=== PATIENT | male | born 1945 | race Caucasian/White ===

== ENCOUNTER 2017-04-19 11:34 | Outpatient (CLI) | payer MEDICARE, BC | END 2017-04-19 11:35 | disposition home or self-care (01) | LOC: LABBT 11:34 | PROVIDERS: ATTEND Internal Medicine Cardiovascular Disease | DX: Z01.818 Encounter for other preprocedural examination (principal); R07.9 Chest pain, unspecified ==

== ENCOUNTER 2017-04-20 06:03 | Day surgery (SDC) | payer MEDICARE, BC ==
[~2017-04-20 06:03] MED LIST: DC ENOXAPARIN NIGHT BEFORE CATH FS SCH; Hydrocortisone Sod Succ/PF 100 mg/2 ml Vial IVP SCH; Sodium Chloride 0.9% 1,000 ML IV SCH
[2017-04-20] MEDS ORDERED: Hydrocortisone Sod Succ/PF 100 mg/2 ml Vial ONE (06:46)
[2017-04-20 06:50] LABS: #Eosinphils 0.1 thou/uL (0.0-0.7); #Lymphocytes 2.2 thou/uL (1.20-3.40); #Monocytes 0.6 thou/uL (0.11-0.59); #Neutrophils 2.7 thou/uL (1.40-6.50); %Basophils 0.2 % (0.0-1.0); %Eosinophils 1.8 % (0.0-10.0); %Lymphocytes 39.3 % (21.0-51.0); %Monocytes 10.7 % (0.0-10.0); Hemoglobin 14.5 g/dL (14.0-18.0); Mean Corpuscular HGB CONC 33.7 g/dL (32.0-36.0); Mean Corpuscular Hemoglobin 32.3 pg (27.0-31.0); Mean Corpuscular Volume 95.9 fl (80.0-94.0); Mean Platelet Volume 7.8 fL (7.4-10.4); Platelet Count 169 thou/uL (130-400); RBC Distribution Width 11.9 % (11.5-14.5); Red Blood Cell (RBC) Count 4.49 mill/uL (4.70-6.10); White Blood Cell (WBC) Count 5.6 thou/uL (4.8-10.8)
[2017-04-20] MEDS ORDERED: Diazepam 5 MG TAB ONE (06:50)
[2017-04-20] MEDS ORDERED: Diazepam 5 MG TAB PO SCH (07:00)
[2017-04-20] MEDS ORDERED: HOLD HYPOGLYCEMIC MEDS AM OF CATH FS SCH (07:00)
[2017-04-20 07:02] LABS: INR-International Normal Ratio 1.1; PTT 27.1 SEC (22.9-36.1); Prothrombin Time 13.9 SEC (12.0-14.7)
[2017-04-20 07:06] LABS: ALT (SGPT) 10 U/L (8-55); AST (SGOT) 13 U/L (5-34); Alkaline Phosphatase 67 U/L (40-150); Anion Gap 12 mmol/L (10-20); BUN (Urea Nitrogen) 16 mg/dL (8.4-25.7); Calc. Creatinine Clearance 0 mL/min (70-130); Calcium 9.7 mg/dL (7.8-10.44); Carbon Dioxide 25 mmol/L (23-31); Cardiac Risk 4.6 (Less than 4.5); Chloride 106 mmol/L (98-107); Cholesterol 176 mg/dl (< 200 Desired); Estimated GFR-MDRD 87; Globulin 3.4 g/dL (2.4-3.5); Glucose 107 mg/dL (83-110); HDL Cholesterol 38 mg/dL (>60 Neg Risk); LDL Cholesterol, Calculated 118 mg/dL; Potassium 3.9 mmol/L (3.5-5.1); Protein, Total 7.4 g/dL (5.8-8.1); Sodium 139 mmol/L (136-145); Triglycerides 98 mg/dL (Less than 150)
[2017-04-20] MEDS ORDERED: Fentanyl 100 MCG/2 ML VIAL ONE (07:28)
[2017-04-20] MEDS ORDERED: Midazolam HCl 2 mg/2 ml Vial ONE (07:28)
[2017-04-20] MEDS ORDERED: Iopamidol 370 76% 100 ML VIAL ONE (11:28)
== END 2017-04-20 13:25 | disposition home or self-care (01) ==
LOC: CCL 06:03
PROVIDERS: ATTEND Internal Medicine Cardiovascular Disease
DX: R94.39 Abnormal result of other cardiovascular function study (principal); I10 Essential (primary) hypertension; I42.9 Cardiomyopathy, unspecified; K21.9 Gastro-esophageal reflux disease without esophagitis; E78.00 Pure hypercholesterolemia, unspecified; Z79.899 Other long term (current) drug therapy; Z96.653 Presence of artificial knee joint, bilateral; Z98.890 Other specified postprocedural states
CPT/HCPCS: 76942; 80053; 80061; 85025; 85610; 85730; 93458; C1769; 36415; 99152; 99153; J1644; J1720; J2250; J3010

== ENCOUNTER 2017-06-29 05:52 | Day surgery (SDC) | payer MEDICARE, BC ==
[2017-06-28 14:12] VITALS: BMI 29.0
[~2017-06-29 05:52] MED LIST changes: +Cyclopentolate 1% Opth Drop 2 ML BOT FS SCH; -DC ENOXAPARIN NIGHT BEFORE CATH FS SCH; +Fluorouracil 100 MG, Enoxaparin Sodium 25 MG, EPINEPHrine 0.3 MG in Ophthalmic Irrigati... IVPB SCH; -Hydrocortisone Sod Succ/PF 100 mg/2 ml Vial IVP SCH; +Phenylephrine 2.5% Ophth Soln 5 ML BOT FS SCH; -Sodium Chloride 0.9% 1,000 ML IV SCH
[2017-06-29] MEDS ORDERED: Fentanyl 250 MCG/5 ML VIAL ONE (06:10)
[2017-06-29] MEDS ORDERED: Diprivan 20 ML ONE (06:10)
[2017-06-29] MEDS ORDERED: Midazolam HCl 2 mg/2 ml Vial ONE (06:10)
[2017-06-29] MEDS ORDERED: Cyclopentolate 1% Opth Drop 2 ML BOT ONE (06:15)
[2017-06-29] MEDS ORDERED: Phenylephrine 2.5% Ophth Soln 5 ML BOT ONE (06:15)
--- NOTE | 2017-06-29 08:39 | OP ---
DATE OF PROCEDURE: 06/29/2017 PREOPERATIVE DIAGNOSIS: Macular hole, right eye. POSTOPERATIVE DIAGNOSIS: Macular hole, right eye. PROCEDURE: Pars plana vitrectomy, internal limiting membrane peel, right eye. SURGEON: Dr. Jaime Shields. ANESTHESIA: Local with monitored anesthesia care. COMPLICATIONS: None. PROCEDURE IN DETAIL: The patient was identified in the preoperative holding area. Appropriate infor med consent, the planned surgical procedure on the right eye had been obtained. The patient was cortés sported to the operative suite. Appropriate cardiopulmonary monitoring established. Local anesthesi a obtained here for retrobulbar and modified Van Lint lid block. Using 50/50 mixture of 4% lidocaine and 0.75% bupivacaine, patient prepped and draped in the usual sterile manner for ophthalmic surgery on the right eye. Lid speculum was placed in the right eye. The 25-gauge trocars were placed in co njunctiva and sclera supratemporally, inferotemporally, and supranasally. Infusion line was placed i nferotemporally. Light pipe and vitreous cutter were inserted into the eye. Core vitrectomy was per formed. Posterior hyaloid face was elevated and lifted across the macula using vacuum suction. Indo cyanine green dye was infused on the posterior pole x1, identifying the internal limiting membrane. This was elevated in the superior and anterior arcades using membrane scraper and peeled across the m acula in large sheets with end-gripping forceps. Complete air fluid exchange was performed with 10 m inutes being allowed for fluid to drain posteriorly. Indirect ophthalmoscopy was used to examine the retina 360 degrees. No holes, breaks, tears were identified. Prophylactic laser was placed behind the sclerotomy sites. Then 28% sulfur hexafluoride gas was infused into the eye. Trocars were remov ed as retain pressure well. Retrobulbar Kenalog and subconjunctival Ancef were placed. Atropine and antibiotic ointment were placed, and the eye was patched and shielded. The patient was taken to the postoperative recovery unit in good condition having suffered no immediate perioperative complicatio ns. DISCHARGE INSTRUCTIONS: The patient was instructed to keep patch and shield on, avoid lifting or sterling ding, and follow up in the morning with Dr. Shields.
[2017-06-29] MEDS ORDERED: Propofol 200 MG/20 ML VIAL ONE (15:17)
[2017-06-29] MEDS ORDERED: Lidocaine 1% PF 5 ML VIAL ONE (15:17)
== END 2017-06-29 08:35 | disposition home or self-care (01) ==
LOC: SDC 05:52
PROVIDERS: ATTEND Ophthalmology Retina Specialist
PROC: 08T43ZZ Resection of Right Vitreous, Percutaneous Approach (ICD-10-PCS; principal; 2017-06-29)
PROC: 08NE3ZZ Release Right Retina, Percutaneous Approach (ICD-10-PCS; 2017-06-29)
DX: H35.341 Macular cyst, hole, or pseudohole, right eye (principal)
CPT/HCPCS: 67025; J0171; J1650; J2001; J2250; J2704; J3010; J9190

== ENCOUNTER 2020-05-25 09:13 | Outpatient (CLI) | payer MEDICARE, OTHER ==
--- NOTE | 2020-05-25 10:24 | RAD ---
CHEST 2 VIEWS: HISTORY: Dyspnea. COMPARISON: Radiograph 02/25/2017. FINDINGS: No confluent airspace consolidation, pneumothorax, or effusion. Heart size is mildly enlarged. Pulm onary arteries are distended. No acute osseous abnormality. Calcified right perihilar lymph nodes and suprahilar paratracheal lymph nodes. IMPRESSION: 1. No acute intrathoracic abnormality. 2. Evidence of prior granulomatous disease. POS: OFF
== END 2020-05-25 09:14 | disposition home or self-care (01) ==
LOC: BICRAD 09:13
PROVIDERS: ATTEND Internal Medicine Critical Care Medicine
DX: R06.00 Dyspnea, unspecified (principal)
CPT/HCPCS: 71046

== ENCOUNTER 2021-07-08 11:33 | Outpatient (CLI) | payer MEDICARE | END 2021-07-08 11:34 | disposition home or self-care (01) | LOC: BICRAD 11:33 | PROVIDERS: ATTEND Family Medicine | DX: M47.816 Spondylosis without myelopathy or radiculopathy, lumbar region (principal); M25.552 Pain in left hip; M16.12 Unilateral primary osteoarthritis, left hip | CPT/HCPCS: 72100 ==

== ENCOUNTER 2021-09-22 11:22 | Outpatient (CLI) | payer MEDICARE | END 2021-09-22 11:23 | disposition home or self-care (01) | LOC: TBSIIMAG 11:22 | PROVIDERS: ATTEND Family Medicine | DX: M48.061 Spinal stenosis, lumbar region without neurogenic claudication (principal); M47.816 Spondylosis without myelopathy or radiculopathy, lumbar region | CPT/HCPCS: 72100 ==

== ENCOUNTER 2024-01-18 11:19 | Outpatient (CLI) | payer MEDICARE | END 2024-01-18 11:20 | disposition home or self-care (01) | LOC: MRI 11:19 | PROVIDERS: ATTEND Family Medicine | DX: M47.812 Spondylosis without myelopathy or radiculopathy, cervical region (principal); M48.02 Spinal stenosis, cervical region | CPT/HCPCS: 71046; 72141 ==